=== PATIENT | male | born 1970 | race Caucasian/White ===

== ENCOUNTER → 2018-06-11 11:38 | Outpatient (CLI) | payer BC, SELFPAY ==
--- NOTE | 2018-06-11 11:46 | RAD_ITS ---
STUDY: X-RAY - ABDOMEN/PELVIS REASON FOR EXAM: Male, 47 years old. History of left kidney stone TECHNIQUE: 2 views COMPARISON: None. FINDINGS: There are no abnormal calcifications projecting over the kidneys. If you've the liver The pelvis. Minimal degenerative changes of the hips and lower lumbosacral spine. There is no bowel distention or free intraperitoneal. RAD/Abdomen Single View IMPRESSION: No acute findings in the abdomen.. No calculi projecting over the kidneys Electronically Signed: Nicolas Camacho MD at 2:53 EDT Tel , Service support ,
== END ==
PROVIDERS: Family Provider Family Medicine; PCP Family Medicine; Referring Provider Urology; Visit Provider Urology
DX: N20.0 Calculus of kidney (principal)
CPT/HCPCS: 74018

== ENCOUNTER → 2019-03-20 17:20 | Outpatient (CLI) | payer BC, SELFPAY ==
[2019-03-27 16:07] LABS: Ca Oxalate, Dihydrate 15 % (.); Ca Oxalate, Monohydrate 75 % (.); Calcium Phosphate 10 % (.)
== END ==
PROVIDERS: Family Provider Family Medicine; PCP Family Medicine; Referring Provider Urology; Visit Provider Urology
DX: N20.0 Calculus of kidney (principal)
CPT/HCPCS: 82360